=== PATIENT | female | born 1930 | race Hispanic/Latino ===

== ENCOUNTER 2017-11-04 08:47 | Observation (INO) | payer MEDICARE ==
[2017-11-04] MEDS ORDERED: Sodium Chloride 0.9% 1,000 ML IV STA (09:30)
[2017-11-04 10:03] LABS: VENOUS BLOOD GAS BASE EXCESS 2.2 mmol/L (0.0-2.0); VENOUS BLOOD GAS PO2 74 mm/Hg (30-55); VENOUS BLOOD PH 7.41 (7.32-7.43)
[2017-11-04 10:04] LABS: BASO # 0.01 K/mm3 (0.0-2.0); BASO % 0.2 % (0.0-3.0); EOS # 0.2 (0.0-0.7); EOS % 3.6 % (1.5-5.0); GRAN # 3.79 (1.4-6.5); GRAN % 64.6 % (50.0-68.0); HEMOGLOBIN 13.4 g/dL (12.0-16.0); LYMPH # 1.5 (1.2-3.4); LYMPH % 24.9 % (22.0-35.0); MEAN CELL VOLUME 89.8 fl (80.0-105.0); MEAN CORPUSCULAR HEMOGLOBIN 29.8 pg (25.0-35.0); MEAN CORPUSCULAR HGB CONC 33.3 g/dl (31.0-37.0); MEAN PLATELET VOLUME 11.4 fl (7.0-11.0); MONO # 0.4 (0.1-0.6); MONO % 6.7 % (1.0-6.0); RBC 4.49 10^6/uL (3.5-6.1); RED CELL DISTRIBUTION WIDTH 13.7 % (11.5-14.5); WHITE BLOOD COUNT 5.9 10^3/ul (4.5-11.0)
[2017-11-04 10:13] LABS: ALB/GLOB RATIO 1.1 (1.1-1.8); ALBUMIN 3.9 g/dL (3.0-4.8); ALT/SGPT 26 U/L (7-56); AST/SGOT 27 U/L (14-36); BLOOD UREA NITROGEN 23 mg/dL (7-21); CALCIUM 9.1 mg/dL (8.4-10.5); GFR AFRICAN-AMERICAN > 60; GFR NON-AFRICAN AMERICAN 52
[2017-11-04 10:15] LABS: PH,URINE 7.5 (4.7-8.0); URINE BILIRUBIN NEGATIVE (NEGATIVE); URINE BLOOD NEGATIVE (NEGATIVE); URINE GLUCOSE (UA) NEGATIVE (NEGATIVE); URINE LEUKOCYTE ESTERASE NEGATIVE Leu/uL (NEGATIVE); URINE PROTEIN NEGATIVE mg/dL (<30 mg/dL); URINE UROBILINOGEN 0.2 E.U./dL (<1 E.U./dL)
[2017-11-04 10:17] LABS: URINE APPEARANCE CLEAR (CLEAR); URINE COLOR YELLOW (YELLOW)
--- NOTE | 2017-11-04 10:20 | CT ---
PROCEDURE: CT HEAD WITHOUT CONTRAST. HISTORY: dizziness COMPARISON: None available. TECHNIQUE: Axial computed tomography images were obtained through the head/brain without intravenous contrast. Radiation dose: Total exam DLP = 898 mGy-cm. This CT exam was performed using one or more of the following dose reduction techniques: Automated exposure control, adjustment of the mA and/or kV according to patient size, and/or use of iterative reconstruction technique. FINDINGS: HEMORRHAGE: No intracranial hemorrhage. BRAIN: No mass effect or edema. Generalized cerebral atrophy with findings compatible with cysts tiny lacune is each external capsule ; possibly left basal ganglia. Bordering each posterior lateral ventricle, deep white matter chronic appearing microvascular ischemic changes. VENTRICLES: Mild ventricular prominence- Appropriate with degree of atrophy CALVARIUM: Unremarkable. PARANASAL SINUSES: Unremarkable as visualized. No significant inflammatory changes. MASTOID AIR CELLS: Unremarkable as visualized. No inflammatory changes. OTHER FINDINGS: None. IMPRESSION: No intracranial hemorrhage or mass effect. Chronic microvascular ischemic changes. Cerebral atrophy para
[2017-11-04 10:21] LABS: PARTIAL THROMBOPLASTIN TIME 28.5 Seconds (25.1-36.5); PROTHROMBIN TIME 11.5 SECONDS (9.4-12.5)
[2017-11-04 10:25] LABS: TROPONIN I 0.02 ng/mL
--- NOTE | 2017-11-04 10:30 | RAD ---
PROCEDURE: CHEST RADIOGRAPH, 1 VIEW HISTORY: admission COMPARISON: 11/12/2015 FINDINGS: LUNGS: Lung volumes low-normal. No consolidation. PLEURA: No pneumothorax or pleural fluid seen. CARDIOVASCULAR: Cardiomegaly and mild pulmonary venous congestion -the large body habitus accentuates the pulmonary vasculature OSSEOUS STRUCTURES: Advanced thoracic and advanced bilateral shoulder arthrosis -similar status VISUALIZED UPPER ABDOMEN: Normal. OTHER FINDINGS: None. IMPRESSION: Mild cardiomegaly and mild pulmonary venous congestion. No effusion. No consolidation.
--- NOTE | 2017-11-04 10:33 | ED PDOC ---
Arrival/HPI - General Chief Complaint: Trauma Time Seen by Provider: 11/04/17 09:21 Historian: Patient - History of Present Illness Narrative History of Present Illness (Text): 11/04/17 10:28 87yo female with pmhx of hypertension, hypercholestrol, hypothyroid, anxiety, who present with complaint of dizziness this morning. Notes that she was dizzy when she woke up this morning. It resolved and then had a near syncopal episode while walking to her living room and fell. States she also feels weak. She denies focal weakness, tinnitus, recent URI, nausea, vomiting, abdominal pain, visual changes, any focal pain, chest pain, SOB, diaphoresis, headache, any other complaint. Past Medical History - Provider Review Nursing Documentation Reviewed: Yes - Tetanus Immunization Tetanus Immunization: Unknown - Cardiac Hx Cardiac Disorders: Yes Hx Hypertension: Yes - Neurological Hx Dizziness: Yes Hx Migraine: Yes Hx Transient Ischemic Attacks (TIA): No - HEENT Hx Cataracts: Yes - Endocrine/Metabolic Hx Hypothyroidism: Yes - Musculoskeletal/Rheumatological Hx Falls: No - Genitourinary/Gynecological Hx Incontinence: Yes - Psychiatric Hx Anxiety: Yes Hx Substance Use: No Other/Comment: Difficulty falling asleep - Surgical History Hx Cataract Extraction: Yes Hx Cardiac Catheterization: Yes Hx Cholecystectomy: Yes Hx Coronary Stent: Yes Hx Orthopedic Surgery: Yes (spine) - Anesthesia Hx Anesthesia: Yes Hx Anesthesia Reactions: No Hx Malignant Hyperthermia: No Family/Social History - Physician Review Nursing Documentation Reviewed: Yes Family/Social History: Unknown Family HX Smoking Status: Never Smoked Hx Alcohol Use: No Hx Substance Use: No Allergies/Home Meds Allergies/Adverse Reactions: Allergies No Known Allergies Allergy (Verified 11/12/15 16:42) Home Medications: Home Meds Medication Instructions Recorded Confirmed Escitalopram [Lexapro] 10 mg PO DAILY 11/12/15 11/04/17 Esomeprazole Magnesium [Nexium] 40 mg PO BRK 11/12/15 11/04/17 Levothyroxine [Synthroid] 75 mcg PO BRK 11/12/15 11/04/17 Metoprolol Succinate XL [Toprol XL] 25 mg PO DAILY 11/12/15 11/04/17 Tramadol HCl [Ultram] 50 mg PO BID PRN 11/12/15 11/04/17 Cyclobenzaprine [Cyclobenzaprine 10 mg PO HS PRN 11/04/17 11/04/17 HCl] Lorazepam [Ativan] 2 mg PO DAILY PRN 11/04/17 11/04/17 Valsartan/Hydrochlorothiazide 1 tab PO DAILY 11/04/17 11/04/17 [Diovan Hct 160-25 mg Tablet] Review of Systems - Physician Review All systems were reviewed & negative as marked: Yes - Review of Systems Constitutional: Normal Eyes: Normal ENT: Normal Respiratory: Normal Cardiovascular: Normal Gastrointestinal: Normal Genitourinary Female: Normal Musculoskeletal: Normal Skin: Normal Neurological: Dizziness. absent: Headache, Focal Weakness, Speech Changes Endocrine: Normal Hemo/Lymphatic: Normal Psychiatric: Normal Physical Exam Vital Signs Reviewed: Yes Vital Signs Temp Pulse Resp BP Pulse Ox 11/04/17 12:13 69 18 149/59 L 97 11/04/17 11:20 71 18 175/72 H 97 11/04/17 08:59 97.9 F 76 18 151/76 H 98 Temperature: Afebrile Blood Pressure: Normal Pulse: Regular Respiratory Rate: Normal Appearance: Positive for: Well-Appearing, Non-Toxic, Comfortable Pain Distress: None Mental Status: Positive for: Alert and Oriented X 3 Finger Stick Blood Glucose: 97 - Systems Exam Head: Present: Atraumatic, Normocephalic Pupils: Present: PERRL Extroacular Muscles: Present: EOMI Conjunctiva: Present: Normal Mouth: Present: Moist Mucous Membranes Neck: Present: Normal Range of Motion Respiratory/Chest: Present: Clear to Auscultation, Good Air Exchange. No: Respiratory Distress, Accessory Muscle Use Cardiovascular: Present: Regular Rate and Rhythm, Normal S1, S2. No: Murmurs Abdomen: No: Tenderness, Distention, Peritoneal Signs Back: Present: Normal Inspection Upper Extremity: Present: Normal Inspection. No: Cyanosis, Edema Lower Extremity: Present: Normal Inspection. No: Edema Neurological: Present: GCS=15, CN II-XII Intact, Speech Normal, Motor Func Grossly Intact, Normal Sensory Function, Normal Cerebellar Funct, Norm Deep Tendon Reflexes, Memory Normal, Other (No focal neurological deficit) Skin: Present: Warm, Dry, Normal Color. No: Rashes Psychiatric: Present: Alert, Oriented x 3, Normal Insight, Normal Concentration Medical Decision Making ED Course and Treatment: 11/04/17 20:36 Pt present to ED for stated history. She was neurologically intact and comfortable in ED. She was not orthostatic in ED. Lab was unremarkable. EKG CXR NAD Head CT - No acute derangement Pt leaves alone and had near syncopal episode. She will need admission for observation and further evaluation. Case was DW Dr. Arreola and she accepted pt and saw pt in ED. - Lab Interpretations Lab Results: 11/04/17 09:35 11/04/17 09:35 Lab Results 11/04/17 09:35: pO2 74 H, VBG pH 7.41, VBG pCO2 43.0, VBG HCO3 27.3, VBG Total CO2 28.6 H, VBG O2 Sat (Calc) 99.3 H, VBG Base Excess 2.2 H, VBG Potassium 4.5, Sodium 139.0, Chloride 107.0, Glucose 107 H, Lactate 1.8, FiO2 21.0, Venous Blood Potassium 4.5 11/04/17 09:35: PT 11.5, INR 1.00, APTT 28.5 11/04/17 09:35: Sodium 141, Chloride 104, Potassium 4.5, Carbon Dioxide 26, Anion Gap 15, BUN 23 H, Creatinine 1.0, Est GFR ( Amer) > 60, Est GFR ( Non-Af Amer) 52, Random Glucose 104, Calcium 9.1, Magnesium 1.8, Total Bilirubin 0.5, AST 27, ALT 26, Alkaline Phosphatase 69, Lactate Dehydrogenase 382, Total Creatine Kinase 111, Troponin I 0.02 D, Total Protein 7.6, Albumin 3.9, Globulin 3.6, Albumin/Globulin Ratio 1.1 11/04/17 09:35: Urine Color Yellow, Urine Appearance Clear, Urine pH 7.5, Ur Specific [place] 1.010, Urine Protein Negative, Urine Glucose (UA) Negative, Urine Ketones Negative, Urine Blood Negative, Urine Nitrate Negative, Urine Bilirubin Negative, Urine Urobilinogen 0.2, Ur Leukocyte Esterase Negative 11/04/17 09:35: WBC 5.9, RBC 4.49, Hgb 13.4, Hct 40.3, MCV 89.8, MCH 29.8, MCHC 33.3, RDW 13.7, Plt Count 112 L, MPV 11.4 H, Gran % 64.6, Lymph % (Auto) 24.9, [place] % (Auto) 6.7 H, Eos % (Auto) 3.6, Baso % (Auto) 0.2, Gran # 3.79, Lymph # ( Auto) 1.5, [place] # (Auto) 0.4, Eos # (Auto) 0.2, Baso # (Auto) 0.01 11/04/17 09:10: POC Glucose (mg/dL) 97 - RAD Interpretation Radiology Orders: 11/04/17 09:22 CHEST ONE VIEW [RAD] Stat 11/04/17 09:23 HEAD W/O CONTRAST [CT] Stat - Medication Orders Current Medication Orders: Atorvastatin Calcium (Lipitor) 10 mg PO DIN [facility] Last Admin: 11/04/17 18:15 Dose: 10 mg Escitalopram Oxalate (Lexapro) 10 mg PO DAILY [facility] Last Admin: 11/04/17 13:32 Dose: 10 mg Levothyroxine Sodium (Synthroid) 75 mcg PO BRK [facility] Last Admin: 11/04/17 13:32 Dose: 75 mcg Lorazepam (Ativan) 0.5 mg PO HS PRN; Protocol PRN Reason: Insomnia Meclizine HCl (Antivert) 12.5 mg PO TID [facility] Last Admin: 11/04/17 18:15 Dose: 12.5 mg Metoprolol Succinate (Toprol Xl) 25 mg PO DAILY [facility] Last Admin: 11/04/17 13:32 Dose: 25 mg Pantoprazole Sodium (Protonix Ec Tab) 40 mg PO 0630 [facility] Tramadol HCl (Ultram) 50 mg PO TID PRN PRN Reason: Pain, moderate (4-7) Last Admin: 11/04/17 13:29 Dose: 50 mg [facility] Pain Assessment Document 11/04/17 13:29 (Rec: 11/04/17 13:29 [id number]) Pain Reassessment Is this a pain reassessment? No Presence of Pain Presence of Pain Yes Re-Assess: [facility] Pain Assessment Document 11/04/17 14:29 (Rec: 11/04/17 14:50 [id number]) Pain Reassessment Is this a pain reassessment? Yes Presence of Pain Presence of Pain No Discontinued Medications Sodium Chloride (Sodium Chloride 0.9%) 1,000 mls @ 100 mls/hr IV .Q10H STA Stop: 11/04/17 19:29 Last Admin: 11/04/17 09:57 Dose: 100 mls/hr eMAR Start Stop Document 11/04/17 09:57 EQ (Rec: 11/04/17 09:57 EQ [id number]) Intravenous Solution Start Date 11/04/17 Start Time 09:57 Disposition/Present on Arrival - Present on Arrival Any Indicators Present on Arrival: No History of DVT/PE: No History of Uncontrolled Diabetes: No Urinary Catheter: No History of Decub. Ulcer: No History Surgical Site Infection Following: None - Disposition Have Diagnosis and Disposition been Completed?: Yes Diagnosis: Near syncope Disposition: HOSPITALIZED Disposition Time: 12:00 Patient Plan: Admission Condition: STABLE
[2017-11-04] MEDS: Levothyroxine 75 MCG TAB PO SCH (13:32)
[2017-11-04] MEDS: Metoprolol Succinate 25 mg XL Tab PO SCH (13:32)
--- NOTE | 2017-11-04 14:00 | CARD ---
APPROVED REPORT EKG Measurement Heart [id number] <Conclusion> Normal sinus rhythm Left axis deviation PRWP Possible ASMI, age unknown
[2017-11-04 14:37] VITALS: BMI 30.8
--- NOTE | 2017-11-04 15:56 | CON ---
NEUROLOGY CONSULT CHIEF COMPLAINT: Syncope. HISTORY OF PRESENT ILLNESS: This is an 87-year-old woman with history of hypertension, hypercholesterolemia, hypothyroid, and anxiety, who presented with complaints of dizziness in terms of lightheadedness with spinning sensation of the room. She notes she was dizzy, when she woke up this morning, it resolved and had a near syncopal event while she was walking to and fell, hit her knee and back of the head, but no concussion or loss of consciousness. She states she does drink water throughout the day, but she is mildly dehydrated. On her labs, CAT scan of the head showed no acute intracranial abnormality. Negative orthostatic vital signs. She is mildly hypertensive. She is undergoing a carotid Doppler as we speak. She has had a carotid Doppler in 2016, which showed 20%-39% proximal ICA stenosis. PAST MEDICAL HISTORY: As above. SOCIAL HISTORY: No illicit drug use, smoking, or EtOH abuse. ALLERGIES: NO KNOWN DRUG ALLERGIES. MEDICATIONS: Reviewed by nurse per reconciliation sheet. FAMILY HISTORY: Noncontributory. REVIEW OF SYSTEMS: A 14-point review of systems negative except as per the HPI. PHYSICAL EXAMINATION: VITAL SIGNS: Temperature 98.8, pulse rate 76, blood pressure 169/78, respiratory rate of 18, oxygen saturation 100% by room air. GENERAL: The patient is sitting up in bed, in no acute distress. HEENT: Atraumatic, normocephalic. PERRLA. Extraocular muscles intact. NECK: Supple. No JVD. No adenopathy noted. LUNGS: Clear to auscultation. No adventitious sounds. HEART: S1, S2. Normal rate and rhythm. No murmurs, rubs, or gallops. ABDOMEN: Soft, nontender, and nondistended. Bowel sounds are present. EXTREMITIES: No clubbing. No cyanosis. Peripheral pulses 2+ felt bilaterally. NEUROLOGIC: The patient is alert and oriented to person, place, month, and year. Speaks [place]. Poor attention span and slow thought process. Cranial nerves II through XII intact. Speech is full. No aphasia note. Motor exam: Moves all extremities equally. No pronator drift seen. Sensory exam: Light touch, pinprick, proprioception, and vibration are intact. DTRs are 1+ throughout. Coordination and gait deferred for now. LABORATORY DATA: Sodium is 141, potassium 4.5, chloride 104, carbon dioxide 26. BUN of 22, creatinine 1. Random glucose of 104. Patient underwent a carotid ultrasound test. ASSESSMENT AND PLAN: This is an 87-year-old woman with history of anxiety, hypertension, hypothyroidism, hypercholesterolemia, who had near syncopal event and dizziness. Dizziness seems more likely a slight mild hypertensive urgency and near syncopal episode could be part of a mild vasovagal component given that she is mildly dehydrated. At this time, recommend, 1. Adequate hydration throughout the day. 2. Keep systolic blood pressure between 130s to 140s systolic and diastolic 70s to 80s.. 3. Aspirin 81 mg p.o. daily plus Lipitor 10 for stroke prevention. 4. Antivert 12.5 mg p.o. t.i.d. for sudden onset of spinning sensation of the room. 5. PT/OT assessment and echocardiogram. Thank you for this consult. Jose Molina MD
--- NOTE | 2017-11-04 16:23 | US ---
PROCEDURE: Bilateral carotid artery duplex ultrasound HISTORY: Carotid stenosis syncope PHYSICIAN(S): Dae Cantu MD. TECHNIQUE: Duplex sonography and color-flow Doppler were used to evaluate the carotid bifurcations and limited segments of the vertebral arteries bilaterally. FINDINGS: There is moderate smooth hypoechoic plaque in the distal common carotid arteries and carotid bifurcations. The peak systolic velocity in the proximal right internal carotid artery is 130 cm/sec. This corresponds to a 40-59 percent proximal right ICA stenosis. Normal systolic velocities are noted in the proximal right external carotid artery. There is antegrade flow in the right vertebral artery. The peak systolic velocity in the proximal left internal carotid artery is 70 cm/sec. This corresponds to a 20 to 39% proximal left ICA stenosis. Normal systolic velocities are noted in the proximal left external carotid artery. There is antegrade flow in the left vertebral artery. IMPRESSION: 1. 40-59 percent proximal right ICA stenosis. 2. 20-39 percent proximal left ICA stenosis. 3. Antegrade flow in both vertebral arteries.
--- NOTE | 2017-11-04 23:05 | HP ---
HISTORY OF PRESENT ILLNESS: The patient is an 87-year-old who lives by herself, who has 2 sons, who live out of town. The patient stated when she woke up this morning to go to bathroom, she felt very weak and dizzy as if she is going to pass out, so she sat on the floor. She called her son also and she called ambulance and she was brought to emergency room. The patient states she did well last night. She ate her regular food around 7 o'clock and when went to bed, she was okay. She does have history of vertigo and Meniere disease in the past and she felt like that. Denies any nausea or vomiting. No fever or chills. Does complain of neck pain, back pain and bilateral elbow and knee pain. PAST MEDICAL HISTORY: 1. Her past medical history is significant for hypertension. 2. Hyperlipidemia. 3. History of Meniere disease. 4. Bilateral knee osteoarthritis. 5. Coronary artery disease status post multiple angioplasties. 6. Hypothyroidism. 7. Hypertension. 8. Lower back surgery in the remote past. MEDICATIONS AT HOME: She is on tramadol 50 mg 3 times a day, simvastatin 20 mg daily, naproxen 500 twice a day, metoprolol 25 daily, lorazepam 1 mg at bedtime, levothyroxine 75 mcg daily, Nexium 40 mg daily and Lexapro 10 mg daily. SOCIAL HISTORY: She lives by herself. Has 2 grown up sons who live out of town. Denies smoking or drinking. REVIEW OF SYSTEMS She is awake, alert, oriented, complain of generalized joint pain. PHYSICAL EXAMINATION: GENERAL: She is awake, alert, oriented, communicative. VITAL SIGNS: She is afebrile, pulse 76, respiration 18, blood pressure 149/59. LUNGS: Bilateral good airflow. No rhonchi or crackle. HEART: S1, S2 audible. ABDOMEN: Soft, nontender. No rebound. No guarding. NEUROLOGIC: The patient is awake, alert, oriented, communicative. EXTREMITIES: Bilateral leg, no edema. Bilateral knee, no deformity. No joint effusion. LABORATORY DATA: WBC 5.9, hemoglobin 13, hematocrit 40, platelet of 112. PT is 11.5, INR 1. Chemistry, sodium 141, potassium 4.5, chloride 104, CO2 of 26, BUN 23, creatinine 1, blood sugar 152. LFTs within normal limits. Urinalysis is unremarkable. CT scan of the head is unremarkable. X-ray of chest is negative. The patient had carotid Doppler study done in November 2015 that was unremarkable. ASSESSMENT AND PLAN: 1. Dizziness, probably dehydration. 2. Generalized osteoarthritis. 3. Hypertension. 4. Hyperlipidemia. 5. Hypothyroidism. 6. History of Meniere disease. PLAN: I will order for carotid Doppler. We will monitor her orthostatics. I will request Neurology evaluation by Dr. Molina and physical therapy evaluation has been requested. I will have a long discussion with the patient's son by the bedside. I will reevaluate the patient in the a.m. If she remains stable, she will be discharged in a.m. Odette Arreola MD
[2017-11-05] MEDS ORDERED: Pantoprazole 40 mg EC Tab PO SCH (06:30)
[2017-11-05 08:48] VITALS: RESP 20; TEMP 97.7; O2SAT 97
[2017-11-05] MEDS: Levothyroxine 75 MCG TAB PO SCH (09:25)
[2017-11-05] MEDS: Metoprolol Succinate 25 mg XL Tab PO SCH (09:25)
[2017-11-05 09:39] VITALS: BP 140/78
--- NOTE | 2017-11-05 11:51 | DS ---
HISTORY OF PRESENT ILLNESS: This is an 87-year-old female who had come in to the hospital with a syncopal episode. The patient was seen by Neurology. The patient had carotid arterial Dopplers and CT of the head that showed no acute abnormalities. The patient was hydrated. She was placed on Antivert. The patient is currently comfortable. The patient's family is here and requesting the patient to be discharged. The patient feels well and I will discharge the patient home. PHYSICAL EXAMINATION: VITAL SIGNS: Temperature is 97.7, pulse of 63, blood pressure 140/78, respirations 20, O2 saturation 97%. GENERAL: The patient is lying in bed, flat, comfortable. HEENT: No oral lesion. Anicteric sclerae. Moist mucosa. NECK: No JVD, adenopathy, or thyromegaly. CARDIOVASCULAR: S1 and S2, regular. No murmurs, rubs, or gallops. LUNGS: Clear to auscultation bilaterally. No wheeze, rales, or rhonchi. ABDOMEN: Bowel sounds are positive, soft, nontender and nondistended. EXTREMITIES: No cyanosis, clubbing or edema. ASSESSMENT: 1. Vertigo with history of Meniere's disease. 2. Hypertension. 3. Dyslipidemia. 4. Hypothyroidism. PLAN: The patient is currently on Antivert. I will continue the Antivert as an outpatient as needed. The patient is on Lipitor for dyslipidemia. She is on Lexapro. She is going to continue on Synthroid for hypothyroidism. The patient is on Ultram for pain. She is going to be on a heart-healthy diet. CONDITION: Stable. ACTIVITIES: Increase as tolerated. Yonathan Lowry MD
[2017-11-05 13:33] VITALS: PULSE 68
== END 2017-11-05 15:36 | disposition home or self-care (01) ==
LOC: ED 08:47 → ERH 11:11 → 3RSO 12:27
PROVIDERS: ADMIT Internal Medicine; ATTEND Internal Medicine
DX: I16.0 Hypertensive urgency (principal); E86.0 Dehydration; R55 Syncope and collapse; H81.09 Meniere's disease, unspecified ear; E03.9 Hypothyroidism, unspecified; E78.00 Pure hypercholesterolemia, unspecified; E78.5 Hyperlipidemia, unspecified; M17.0 Bilateral primary osteoarthritis of knee; I25.10 Atherosclerotic heart disease of native coronary artery without angina pectoris; Z95.5 Presence of coronary angioplasty implant and graft
CPT/HCPCS: 70450; 71045; 80053; 81003; 82550; 82803; 82948; 83615; 83735; 84484; 85025; 85610; 85730; 93005; 93880; 99285; G0378; J7030

== ENCOUNTER 2018-06-12 12:58 | Emergency (ER) | payer MEDICARE ==
[2018-06-12 13:01] VITALS: BMI 29.2
[2018-06-12 13:18] VITALS: TEMP 98
--- NOTE | 2018-06-12 13:21 | ED PDOC ---
Arrival/HPI - General Chief Complaint: Headache Time Seen by Provider: 06/12/18 13:03 Historian: Patient - History of Present Illness Narrative History of Present Illness (Text): 06/12/18 13:17 An 87 year old female, whose past medical history includes hypothyroidism, hypertension, urinary incontinence, CAD with 1 stent in 2004, cholecystectomy 2011, b/l knee arthritis, L5-S1 surgery with instrumentation in 2002, miners's disease, presents to the emergency department with a complaint of 1 year duration headache, neck pain, and dizziness. Iqra (EMT) translated with patient's permission. Patient reports 1 years worth of headache, neck pain, and dizziness. She currently complains of headache and neck pain, but reports the dizziness has resolved. The patient is a non-smoker/ non- drinker. She denies trauma, fevers, chills, headache, numbness, weakness, chest pain, shortness of breath, dyspnea on exertion, cough, abdominal pain, nausea, vomiting, diarrhea, back pain, neck pain, urinary/bowel changes, or any other complaint. Time/Duration: Other (1 year) Symptom Onset: Sudden Symptom Course: Unchanged Activities at Onset: Rest, Light Context: Home Associated Symptoms (Text): 06/12/18 13:26 Chronic headache and neck pain for over one year. She just cannot take it any longer. She is also had dizziness, but is currently not dizzy. No weakness. No numbness tingling or paresthesias. No nausea or vomiting. No trauma. She lives at home alone. No chest pain or palpitations. She does not appear to be in any distress. Past Medical History - Provider Review Nursing Documentation Reviewed: Yes - Infectious Disease Hx of Infectious Diseases: None - Tetanus Immunization Tetanus Immunization: Unknown - Reproductive Menopause: Yes - Cardiac Hx Cardiac Disorders: Yes Hx Hypertension: Yes - Neurological Hx Dizziness: Yes Hx Migraine: Yes - HEENT Hx Cataracts: Yes - Endocrine/Metabolic Hx Hypothyroidism: Yes - Musculoskeletal/Rheumatological Hx Arthritis: Yes - Genitourinary/Gynecological Hx Incontinence: Yes - Psychiatric Hx Anxiety: Yes Hx Substance Use: No Other/Comment: Difficulty falling asleep - Surgical History Hx Cataract Extraction: Yes Hx Cardiac Catheterization: Yes Hx Cholecystectomy: Yes Hx Coronary Stent: Yes Hx Orthopedic Surgery: Yes (spine) - Anesthesia Hx Anesthesia: Yes Hx Anesthesia Reactions: No Hx Malignant Hyperthermia: No Family/Social History - Physician Review Nursing Documentation Reviewed: Yes Family/Social History: No Known Family HX Smoking Status: Never Smoked Hx Alcohol Use: No Hx Substance Use: No Allergies/Home Meds Allergies/Adverse Reactions: Allergies No Known Allergies Allergy (Verified 11/12/15 16:42) Home Medications: Home Meds Medication Instructions Recorded Confirmed Esomeprazole Magnesium [Nexium] 40 mg PO BRK 11/12/15 11/04/17 Tramadol HCl [Ultram] 50 mg PO BID PRN 11/12/15 11/04/17 Valsartan/Hydrochlorothiazide 1 tab PO DAILY 11/04/17 11/04/17 [Diovan Hct 160-25 mg Tablet] Review of Systems - Physician Review All systems were reviewed & negative as marked: Yes - Review of Systems Constitutional: absent: Fatigue, Fevers Respiratory: absent: SOB, Cough Cardiovascular: absent: Chest Pain, RAVI Gastrointestinal: absent: Abdominal Pain, Stool Changes, Diarrhea, Nausea, Vomiting Genitourinary Female: absent: Urine Output Changes Musculoskeletal: Neck Pain. absent: Back Pain Neurological: Headache, Dizziness. absent: Focal Weakness Physical Exam Temperature: Afebrile Blood Pressure: Hypertensive Pulse: Regular Respiratory Rate: Normal Appearance: Positive for: Well-Appearing, Non-Toxic, Comfortable Pain Distress: None Mental Status: Positive for: other (awake and alert) - Systems Exam Head: Present: Atraumatic, Normocephalic Pupils: Present: PERRL Extroacular Muscles: Present: EOMI Conjunctiva: Present: Normal Ears: Present: NORMAL TM, Normal Canal. No: Erythema, TM Bulging Mouth: Present: Moist Mucous Membranes Pharnyx: No: ERYTHEMA, EXUDATE, TONSILS ENLARGED Neck: Present: Normal Range of Motion Respiratory/Chest: Present: Clear to Auscultation, Good Air Exchange. No: Respiratory Distress, Accessory Muscle Use Cardiovascular: Present: Regular Rate and Rhythm, Normal S1, S2. No: Murmurs Abdomen: No: Tenderness, Distention, Peritoneal Signs, Rebound, Guarding Back: Present: Normal Inspection Upper Extremity: Present: Normal Inspection. No: Cyanosis, Edema Lower Extremity: Present: Normal Inspection. No: Edema Neurological: Present: GCS=15, CN II-XII Intact, Speech Normal, Motor Func Grossly Intact, Normal Sensory Function, Normal Cerebellar Funct Skin: Present: Warm, Dry, Normal Color. No: Rashes Psychiatric: Present: Alert, Oriented x 3, Normal Insight, Normal Concentration Medical Decision Making ED Course and Treatment: 06/12/18 13:22 Impression: An 87 year old female presents to the emergency department with a complaint of 1 year duration headache, dizziness, and neck pain. Plan: -- Head CT -- EKG -- Chest X-ray -- Labs -- Toradol -- Reassess and disposition Progress Notes: 06/12/18 13:27 EKG shows normal sinus rhythm rate approximately 70 with PACs and poor R-wave progression with Q waves inferiorly and no acute ST or T-wave changes. PROCEDURE: CT HEAD WITHOUT CONTRAST. Dictator : Josue Alatorre MD Report Date : 06/12/2018 14:24:36 IMPRESSION: No acute intracranial findings Chest X-ray Dictator : Josue Alatorre MD Report Date : 06/12/2018 15:05:16 IMPRESSION: No active disease. 06/12/18 14:51 Workup is unremarkable including CT scan of the head. Patient does feel better after Toradol. Discharged home accompanied by son. Follow-up with PMD. Follow up in ER as needed. - Lab Interpretations I have reviewed the lab results: Yes - RAD Interpretation Radiology Orders: CT scan of the head as read by the radiologist shows no acute findings. X-ray chest one view shows cardiomegaly with no infiltrate or effusion. Facility Coordinator: Radiologist - EKG Interpretation Interpreted by ED Physician: Yes Type: 12 lead EKG - Scribe Statement The provider has reviewed the documentation as recorded by the Jyotiibgino Ram Provider Scribe Attestation: All medical record entries made by the Scribe were at my direction and personally dictated by me. I have reviewed the chart and agree that the record accurately reflects my personal performance of the history, physical exam, medical decision making, and the department course for this patient. I have also personally directed, reviewed, and agree with the discharge instructions and disposition. Disposition/Present on Arrival - Present on Arrival Any Indicators Present on Arrival: No History of DVT/PE: No History of Uncontrolled Diabetes: No Urinary Catheter: No History of Decub. Ulcer: No History Surgical Site Infection Following: None - Disposition Have Diagnosis and Disposition been Completed?: Yes Diagnosis: Headache, Dizziness, Hypertension Disposition: HOME/ ROUTINE Disposition Time: 14:52 Patient Plan: Discharge Condition: IMPROVED Discharge Instructions (ExitCare): High Blood Pressure in Adults, Headache, Adult, Dizziness, Nonvertigo, (DC) Prescriptions: Naproxen [Naprosyn Tab] 250 mg PO BID PRN #14 tab PRN Reason: Headache Forms: [facility] (Thai)
[2018-06-12 13:39] LABS: BASO # 0.01 K/mm3 (0.0-2.0); BASO % 0.2 % (0.0-3.0); EOS # 0.2 (0.0-0.7); EOS % 2.9 % (1.5-5.0); HEMOGLOBIN 12.8 g/dL (12.0-16.0); LYMPH # 2.2 (1.2-3.4); LYMPH % 37.4 % (22.0-35.0); MEAN CORPUSCULAR HGB CONC 32.7 g/dl (31.0-37.0); MEAN PLATELET VOLUME 10.1 fl (7.0-11.0); MONO # 0.3 (0.1-0.6); MONO % 5.6 % (1.0-6.0); RBC 4.26 10^6/uL (3.5-6.1); RED CELL DISTRIBUTION WIDTH 13.4 % (11.5-14.5); WHITE BLOOD COUNT 5.9 10^3/uL (4.5-11.0)
[2018-06-12 13:54] LABS: ALBUMIN 3.9 g/dL (3.0-4.8); ALT/SGPT 8 U/L (7-56); AST/SGOT 26 U/L (14-36); BLOOD UREA NITROGEN 22 mg/dL (7-21); CALCIUM 9.6 mg/dL (8.4-10.5); GFR NON-AFRICAN AMERICAN 47
[2018-06-12 14:05] LABS: TROPONIN I < 0.01 ng/mL
--- NOTE | 2018-06-12 14:28 | CT ---
Date of service: 06/12/2018 PROCEDURE: CT HEAD WITHOUT CONTRAST. HISTORY: JULIO COMPARISON: 11/04/2017 TECHNIQUE: Axial computed tomography images were obtained through the head/brain without intravenous contrast. Radiation dose: Total exam DLP = 958.22 mGy-cm. This CT exam was performed using one or more of the following dose reduction techniques: Automated exposure control, adjustment of the mA and/or kV according to patient size, and/or use of iterative reconstruction technique. FINDINGS: HEMORRHAGE: No intracranial hemorrhage. BRAIN: No mass effect or edema. There is moderate atrophy VENTRICLES: Unremarkable. No hydrocephalus. CALVARIUM: Unremarkable. PARANASAL SINUSES: Unremarkable as visualized. No significant inflammatory changes. MASTOID AIR CELLS: Unremarkable as visualized. No inflammatory changes. OTHER FINDINGS: None. IMPRESSION: No acute intracranial findings
--- NOTE | 2018-06-12 15:08 | RAD ---
Date of service: 06/12/2018 HISTORY: dizzy COMPARISON: 11/04/2017 FINDINGS: LUNGS: No active pulmonary disease. PLEURA: No significant pleural effusion identified, no pneumothorax apparent. CARDIOVASCULAR: No aortic atherosclerotic calcification present. Mild cardiomegaly no pulmonary vascular congestion. OSSEOUS STRUCTURES: No significant abnormalities. VISUALIZED UPPER ABDOMEN: Normal. OTHER FINDINGS: None. IMPRESSION: No active disease.
[2018-06-12 15:19] VITALS: PULSE 85; RESP 19; O2SAT 99
[2018-06-12 15:22] VITALS: BP 126/53
--- NOTE | 2018-06-12 22:57 | CARD ---
APPROVED REPORT Date of service: 06/12/2018 EKG Measurement Heart [id number] <Conclusion> Sinus rhythm with premature supraventricular complexes Low voltage QRS Leftward axis Septal infarct, age undetermined Abnormal ECG
== END 2018-06-12 15:20 | disposition home or self-care (01) ==
LOC: ED 12:58
DX: R51 Headache (principal); R42 Dizziness and giddiness; I10 Essential (primary) hypertension; E03.9 Hypothyroidism, unspecified; I25.10 Atherosclerotic heart disease of native coronary artery without angina pectoris
CPT/HCPCS: 70450; 71045; 80053; 82550; 83615; 83735; 84484; 85025; 93005; 96374; 99285; J1885